=== PATIENT | male | born 2000 | race American Indian/Alaskan Native ===

== ENCOUNTER 2020-07-13 23:46 | Emergency (ER) | payer SELFPAY ==
[2020-07-14 00:18] VITALS: BP 122/80
[2020-07-14] MEDS ORDERED: DIPHtheria,PERTUSSIS(ACELL),TETANUS VACCINE/PF 0.5 ML VIAL IM ONE (01:34)
[2020-07-14] MEDS ORDERED: HYDROcodone/ACETAMINOPHEN 5-325 MG TAB PO ONE (01:34)
[2020-07-14] MEDS ORDERED: LIDOCAINE 1%/EPINEPHRINE 1:100,000 VIAL (20 ML) INFILTRATI NR (01:45)
--- NOTE | 2020-07-14 02:49 | Emergency Department Report ---
ED General Adult HPI - General Chief complaint: Wound/Laceration Stated complaint: HEAD BUSTED Time Seen by Provider: 07/14/20 01:34 Source: patient Mode of arrival: Ambulatory Limitations: No Limitations - History of Present Illness Initial comments: Patient is a 19-year-old male who presents for right eyebrow laceration. Patient states that he sneezed striking his head against his bathroom door causing laceration. Bleeding was controlled by direct pressure at home. There was no LOC and patient was immediately ambulatory after incident. He complains of mild headache 2/10. There is no visual loss. Last tetanus shot unknown. There are no other exacerbating or relieving factors. Severity scale (0 -10): 4 - Related Data Previous Rx's Medication Instructions Recorded Last Taken Type traMADoL [Ultram] 50 mg PO Q6HR PRN #12 tablet 07/14/20 Unknown Rx Allergies Allergy/AdvReac Type Severity Reaction Status Date / Time No Known Allergies Allergy Verified 07/14/20 01:36 ED Review of Systems ROS: Stated complaint: HEAD BUSTED Other details as noted in HPI Constitutional: denies: chills, fever Eyes: denies: eye pain, eye discharge, vision change ENT: denies: ear pain, throat pain Respiratory: denies: cough, shortness of breath, wheezing Cardiovascular: denies: chest pain, palpitations Endocrine: no symptoms reported Gastrointestinal: denies: abdominal pain, nausea, diarrhea Genitourinary: denies: urgency, dysuria Musculoskeletal: denies: back pain, joint swelling, arthralgia Skin: other (right eyebrow laceration) Neurological: headache Psychiatric: denies: anxiety, depression Hematological/Lymphatic: denies: easy bleeding, easy bruising ED Past Medical Hx - Past Medical History Previous Medical History?: No - Surgical History Past Surgical History?: No - Social History Smoking Status: Never Smoker Substance Use Type: Marijuana - Medications Home Medications: Home Medications Medication Instructions Recorded Confirmed Last Taken Type traMADoL [Ultram] 50 mg PO Q6HR PRN #12 tablet 07/14/20 Unknown Rx ED Physical Exam - General Limitations: No Limitations General appearance: alert, in no apparent distress - Head Head exam: Present: normocephalic - Expanded Head Exam Expanded Head exam: Present: laceration (right eyebrow flap 1.5 cm ). Absent: hematoma - Eye Eye exam: Present: normal appearance, PERRL, EOMI. Absent: nystagmus, periorbital swelling, periorbital tenderness Pupils: Present: normal accommodation - ENT ENT exam: Present: mucous membranes moist - Neck Neck exam: Present: normal inspection, full ROM. Absent: tenderness - Respiratory Respiratory exam: Present: normal lung sounds bilaterally. Absent: respiratory distress, wheezes, stridor - Cardiovascular Cardiovascular Exam: Present: regular rate, normal rhythm, normal heart sounds. Absent: systolic murmur, diastolic murmur, rubs, gallop - GI/Abdominal GI/Abdominal exam: Present: soft, normal bowel sounds - Rectal Rectal exam: Present: deferred - Extremities Exam Extremities exam: Present: normal inspection, full ROM. Absent: tenderness - Back Exam Back exam: Present: normal inspection, full ROM. Absent: tenderness, vertebral tenderness - Neurological Exam Neurological exam: Present: alert, oriented X3, CN II-XII intact, normal gait, reflexes normal. Absent: motor sensory deficit - Expanded Neurological Exam Expanded Patient oriented to: Present: person, place, time Speech: Present: fluid speech Motor strength exam: RUE: 5, LUE: 5 Best Eye Response ([place]): (4) open spontaneously Best Motor Response ([place]): (6) obeys commands Best Verbal Response ([place]): (5) oriented Adore Total: 15 - Psychiatric Psychiatric exam: Present: normal affect, normal mood - Skin Skin exam: Present: warm, dry, normal color, other (laceration right eyebrow 1.5 cm flap ). Absent: rash ED Course Vital Signs 07/14/20 00:15 Temperature 97.5 F L Pulse Rate 58 L Respiratory 18 Rate Blood Pressure 122/80 O2 Sat by Pulse 100 Oximetry - Laceration /Wound Repair Right Face Wound Location: face (Right eyebrow flap laceration 1.5 cm) Wound Length (cm): 1 Wound's Depth, Shape: superficial Wound Explored: clean Irrigated w/ Saline (ccs): 20 Betadine Prep?: Yes Anesthesia: 1% Lidocaine Volume Anesthetic (ccs): 1 Wound Debrided: none required Wound Repaired With: sutures Suture Size/Type: 4:0, proline Number of Sutures: 3 Layer Closure?: No Sterile Dressing Applied?: Yes Progress: Right eyebrow flap laceration , wound cleaned with sterile saline, anesthesia with 1% lidocaine with epi x1 cc, anesthesia is achieved wound closed with four- point 0 Prolene times 3 sutures interrupted , edges are well approximated all bleeding is controlled patient given wound care instructions, patient verbalized understanding of same. Patient tolerated procedure with minimal distress. Sterile dressing is applied. ED Medical Decision Making - Medical Decision Making Right eyebrow laceration see procedure note. Tetanus shot given tetanus shot given , patient given wound care instructions verbalized understanding of same. Patient DC'd home in stable condition at this time. Patient is currently alert oriented x3 there is no active bleeding. patient with no acute distress Critical care attestation.: If time is entered above; I have spent that time in minutes in the direct care of this critically ill patient, excluding procedure time. ED Disposition Clinical Impression: Laceration of eyebrow Qualifiers: Encounter type: initial encounter Laterality: right Qualified Code(s): S01.111A - Laceration without foreign body of right eyelid and periocular area, initial encounter Disposition: DC-01 TO HOME OR SELFCARE Is pt being admited?: No Does the pt Need Aspirin: No Condition: Stable Instructions: Laceration Care, Adult, Wound Care, Adult Prescriptions: traMADoL [Ultram] 50 mg PO Q6HR PRN #12 tablet PRN Reason: Pain Referrals: PABLO AVILA MD [Referring] - 3-5 Days Forms: Work/School Release Form(ED) Time of Disposition: 02:53
== END 2020-07-14 03:00 | disposition home or self-care (01) ==
LOC: ED 23:46
DX: S01.111A Laceration without foreign body of right eyelid and periocular area, initial encounter (principal); F12.10 Cannabis abuse, uncomplicated; W22.01XA Walked into wall, initial encounter; Y93.89 Activity, other specified; Y92.89 Other specified places as the place of occurrence of the external cause; Y99.8 Other external cause status
CPT/HCPCS: 90471; 90715; 99282

== ENCOUNTER 2020-07-20 14:43 | Emergency (ER) | payer SELFPAY ==
[2020-07-20 16:02] VITALS: BP 123/57
--- NOTE | 2020-07-20 17:40 | Emergency Department Report ---
Suture/Staple Removal - HPI Chief Complaint: Laceration/Recheck/Suture Stated Complaint: STITCHES REMOVAL Time Seen by Provider: 07/20/20 17:38 When Sutures or [place] Placed: 07/13/2020 Wound Location: right eyebrow ED Review of Systems ROS: Stated complaint: STITCHES REMOVAL Other details as noted in HPI Comment: All other systems reviewed and negative ED Past Medical Hx - Social History Smoking Status: Never Smoker Substance Use Type: Marijuana - Medications Home Medications: Home Medications Medication Instructions Recorded Confirmed Last Taken Type traMADoL [Ultram] 50 mg PO Q6HR PRN #12 tablet 07/14/20 Unknown Rx Suture Removal Exam - Exam General: Vital signs noted. No distress. Alert and acting appropriately. Wound: No Pathologic Erythema, No Tenderness, No Drainage, No Pus, No Wound Dehiscence Other Systems: All other systems reviewed and are unremarkable. ED Course Vital Signs 07/20/20 16:01 Temperature 97.8 F Pulse Rate 69 Respiratory 16 Rate Blood Pressure 123/57 [Left] O2 Sat by Pulse 100 Oximetry ED Recheck MDM - Medical Decision Making Patient is a 19-year-old male presents emergency room for suture removal. He states that he had the sutures placed a week ago. He states that he was given a Tdap at that time. On exam wound appears to be well-healed, there are some scabbing present, no wound dehiscence, no erythema, no drainage, no increased warmth, no signs of infection. All sutures removed without difficulty, no complications, no bleeding, no wound dehiscence. Discussed wound care with patient. Advised patient to follow-up with primary care doctor. Return to emergency room for new or worsening symptoms. Critical care attestation.: If time is entered above; I have spent that time in minutes in the direct care of this critically ill patient, excluding procedure time. ED Disposition Clinical Impression: Encounter for removal of sutures Disposition: DC- TO HOME OR SELFCARE Is pt being admited?: No Does the pt Need Aspirin: No Condition: Stable Instructions: Suture Removal, Care After Additional Instructions: Follow-up with a primary care doctor. Return to emergency room any new or worsening symptoms. Referrals: SRINIVASA LAY MD [Staff Physician] - 2-3 Days [facility] [Provider Group] - 2-3 Days Time of Disposition: 17:39 Print Language: PRYDEINIG
== END 2020-07-20 17:51 | disposition home or self-care (01) ==
LOC: ED 14:43
DX: Z48.02 Encounter for removal of sutures (principal); Z53.21 Procedure and treatment not carried out due to patient leaving prior to being seen by health care provider

== ENCOUNTER 2021-11-19 15:52 | Emergency (ER) | payer SELFPAY ==
[2021-11-19] MEDS: ONDANSETRON 4 MG ODT TAB PO ONE (22:15)
[2021-11-19] MEDS: FAMOTIDINE 20 MG TAB PO ONE (22:15)
[2021-11-19] MEDS: DICYCLOMINE 20 MG TAB PO ONE (22:19)
--- NOTE | 2021-11-19 22:51 | Emergency Department Report ---
ED Abdominal Pain HPI - General Chief Complaint: Chest Pain Stated Complaint: HEART PROBLEMS Source: patient Mode of arrival: Ambulatory Limitations: No Limitations - History of Present Illness Initial Comments: Patient is a 21-year-old -[place] male with no past medical history presents to the ED with complaint of acute onset persistent epigastric pain that radiates to the chest wall with nausea and vomiting for the last 2 days. Patient states that the symptoms started after he ate at a restaurant. Patient states that the last time he had a nausea and vomiting was over 12 hours ago. Patient states that the pain is dull and achy and is intermittent, worsened with food. Patient denies dizziness, syncope, fever, chills, cough, shortness of breath, dysuria, urinary frequency and urgency, headache, sore throat or hematemesis and diarrhea. MD Complaint: abdominal pain (epigastric pain), other (nausea and vomiting) -: Sudden, days(s) (2) Location: epigastric Radiation: chest Migration to: no migration Severity scale (0 -10): 5 Quality: aching, dull Consistency: intermittent Improves With: nothing Worsens With: eating, vomiting Context: possible food poisoning Associated Symptoms: denies other symptoms, nausea, vomiting, anorexia. denies: diarrhea, fever, chills, dysuria, hematemesis, hematochezia, melena - Related Data Previous Rx's Medication Instructions Recorded Last Taken Type traMADoL [Ultram] 50 mg PO Q6HR PRN #12 tablet 07/14/20 Unknown Rx Dicyclomine [Bentyl] 20 mg PO Q6H PRN #30 tablet 11/19/21 Unknown Rx Famotidine [Pepcid] 20 mg PO Q12H #60 tablet 11/19/21 Unknown Rx Ondansetron [Zofran Odt] 4 mg PO Q6HR PRN #20 tab.rapdis 11/19/21 Unknown Rx Allergies Allergy/AdvReac Type Severity Reaction Status Date / Time No Known Allergies Allergy Verified 07/14/20 01:36 ED Review of Systems ROS: Stated complaint: HEART PROBLEMS Other details as noted in HPI Constitutional: denies: chills, fever Eyes: denies: eye pain, eye discharge, vision change ENT: denies: ear pain, throat pain Respiratory: denies: cough, shortness of breath, wheezing Cardiovascular: denies: chest pain, palpitations Endocrine: no symptoms reported Gastrointestinal: abdominal pain, nausea, vomiting. denies: diarrhea Genitourinary: denies: urgency, dysuria Musculoskeletal: denies: back pain, joint swelling, arthralgia Skin: denies: rash, lesions Neurological: denies: headache, weakness, paresthesias Psychiatric: denies: anxiety, depression Hematological/Lymphatic: denies: easy bleeding, easy bruising ED Past Medical Hx - Social History Smoking Status: Never Smoker Substance Use Type: Marijuana - Medications Home Medications: Home Medications Medication Instructions Recorded Confirmed Last Taken Type traMADoL [Ultram] 50 mg PO Q6HR PRN #12 tablet 07/14/20 Unknown Rx Dicyclomine [Bentyl] 20 mg PO Q6H PRN #30 tablet 11/19/21 Unknown Rx Famotidine [Pepcid] 20 mg PO Q12H #60 tablet 11/19/21 Unknown Rx Ondansetron [Zofran Odt] 4 mg PO Q6HR PRN #20 tab.rapdis 11/19/21 Unknown Rx ED Physical Exam - General Limitations: No Limitations General appearance: alert, in no apparent distress - Head Head exam: Present: atraumatic, normocephalic, normal inspection - Eye Eye exam: Present: normal appearance, PERRL, EOMI Pupils: Present: normal accommodation - ENT ENT exam: Present: normal exam, normal orophraynx, mucous membranes moist, TM's normal bilaterally, normal external ear exam - Neck Neck exam: Present: normal inspection, full ROM. Absent: tenderness - Respiratory Respiratory exam: Present: normal lung sounds bilaterally. Absent: respiratory distress, wheezes, chest wall tenderness, accessory muscle use, decreased breath sounds - Cardiovascular Cardiovascular Exam: Present: regular rate, normal rhythm. Absent: bradycardia, systolic murmur, diastolic murmur, rubs, gallop - GI/Abdominal GI/Abdominal exam: Present: soft, normal bowel sounds. Absent: tenderness, guarding, rebound, hyperactive bowel sounds, hypoactive bowel sounds, organomegaly - Extremities Exam Extremities exam: Present: normal inspection, full ROM, normal capillary refill - Back Exam Back exam: Present: normal inspection, full ROM. Absent: tenderness, CVA tenderness (R), CVA tenderness (L), muscle spasm, paraspinal tenderness, vertebral tenderness - Neurological Exam Neurological exam: Present: alert, oriented X3, CN II-XII intact, normal gait, reflexes normal - Psychiatric Psychiatric exam: Present: normal affect, normal mood - Skin Skin exam: Present: warm, dry, intact, normal color. Absent: rash ED Course Vital Signs 11/19/21 11/19/21 16:03 22:55 Temperature 97.2 F L 98.2 F Pulse Rate 79 78 Respiratory 18 20 Rate Blood Pressure 120/62 118/81 [Right] O2 Sat by Pulse 100 100 Oximetry ED Medical Decision Making - Medical Decision Making This is a 21-year-old -[place] male with no past medical history presents to the ED with complaint of acute onset persistent epigastric pain that radiates to the chest wall with nausea and vomiting for the last 2 days. Patient states that the symptoms started after he ate at a restaurant. Patient states that the last time he had a nausea and vomiting was over 12 hours ago. Patient states that the pain is dull and achy and is intermittent, worsened with food. In the ED, patient is alert and oriented x3 and is not in any distress. Patient was treated for pain with Bentyl, also given antiemetics Zofran and Pepcid. On reevaluation while patient's pain is well controlled medication. Patient has not had any nausea or vomiting while in the ED. Patient was discharged home on medications and advised to follow-up with his primary care physician in 7 to 10 days for reevaluation or return to the ED immediately if symptoms get worse. - Differential Diagnosis Viral gastroenteritis; GERD; gastritis; dehydration; Critical care attestation.: If time is entered above; I have spent that time in minutes in the direct care of this critically ill patient, excluding procedure time. ED Disposition Clinical Impression: GERD (gastroesophageal reflux disease), Viral gastroenteritis, Nausea and vomiting in adult patient Disposition: 07 LEFT AWOL/ELOPED Is pt being admited?: No Does the pt Need Aspirin: No Condition: Stable Instructions: Viral Gastroenteritis, Adult, [id number], Nausea and Vomiting, Adult, [id number], Gastroesophageal Reflux Disease, Adult, [id number] Additional Instructions: Maintain a clear liquid diet for 12 to 24 hours, drink plenty of fluids, take medication as needed for nausea and vomiting, follow-up with your primary care physician in 5 to 7 days for reevaluation. Return to the ED immediately if symptoms get worse with Prescriptions: Dicyclomine [Bentyl] 20 mg PO Q6H PRN #30 tablet PRN Reason: abdominal pain Famotidine [Pepcid] 20 mg PO Q12H #60 tablet Ondansetron [Zofran Odt] 4 mg PO Q6HR PRN #20 tab.rapdis PRN Reason: Nausea Referrals: SRINIVASA LAY MD [Primary Care Provider] - 3-5 Days Forms: AMA Form, Work/School Release Form(ED) Time of Disposition: 22:52 Print Language: SINGAPOREAN
[2021-11-19 22:56] VITALS: BP 118/81
--- NOTE | 2021-11-22 19:49 | Electrocardiograph Report ---
[facility] Test Date: 2021-11-19 Test Time: 16:09:59 Pat Name: JALEEL NICHOLS Department: Room: Gender: M Speech Language Specialist: TONI : 2000 Requested By: YUNG SPENCER Order Number: [id number] Reading MD: Brook Brooks Measurements Intervals [place] Rate: 43 P: 81 [place]: 161 QRS: 44 QRSD: 99 T: 49 QT: 421 QTc: 357 Interpretive Statements Sinus bradycardia ST elev, probable normal early repol pattern No previous ECG available for comparison Electronically Signed On 11-22-2021 19:48:53 EDT by Brook Brooks
== END 2021-11-19 22:55 | disposition left against medical advice (07) ==
LOC: ED 15:52
DX: K21.9 Gastro-esophageal reflux disease without esophagitis (principal); A08.4 Viral intestinal infection, unspecified; F12.90 Cannabis use, unspecified, uncomplicated; Z79.899 Other long term (current) drug therapy
CPT/HCPCS: 93005; 99282; J3490; Q0162